=== PATIENT | male | born 1930 | race Caucasian/White ===

== ENCOUNTER → 2018-01-28 | Outpatient (CLI) | payer MEDICARE, OTHER | END | disposition home or self-care (01) | LOC: PCVCCLINIC 16:00 | DX: I11.0 Hypertensive heart disease with heart failure (principal); I50.22 Chronic systolic (congestive) heart failure; B33.24 Viral cardiomyopathy; E78.5 Hyperlipidemia, unspecified; I35.0 Nonrheumatic aortic (valve) stenosis; I48.0 Paroxysmal atrial fibrillation; R94.31 Abnormal electrocardiogram [ECG] [EKG]; I65.23 Occlusion and stenosis of bilateral carotid arteries; Z79.01 Long term (current) use of anticoagulants; Z87.891 Personal history of nicotine dependence; Z79.899 Other long term (current) drug therapy | CPT/HCPCS: 80061; 93005; G0463 ==

== ENCOUNTER → 2018-02-11 | Outpatient (CLI) | payer MEDICARE, OTHER | END | disposition home or self-care (01) | LOC: PCVCIMAG 09:41 | DX: I65.23 Occlusion and stenosis of bilateral carotid arteries (principal); I08.3 Combined rheumatic disorders of mitral, aortic and tricuspid valves; I42.9 Cardiomyopathy, unspecified; I10 Essential (primary) hypertension | CPT/HCPCS: 93306; 93880 ==

== ENCOUNTER → 2018-04-16 | Outpatient (CLI) | payer MEDICARE, OTHER | END | disposition home or self-care (01) | LOC: PCVCCLINIC 11:20 | DX: I11.0 Hypertensive heart disease with heart failure (principal); I50.22 Chronic systolic (congestive) heart failure; B33.24 Viral cardiomyopathy; I35.0 Nonrheumatic aortic (valve) stenosis; I48.0 Paroxysmal atrial fibrillation; I65.23 Occlusion and stenosis of bilateral carotid arteries; Z79.01 Long term (current) use of anticoagulants; Z87.891 Personal history of nicotine dependence; Z79.899 Other long term (current) drug therapy | CPT/HCPCS: 93005; G0463 ==

== ENCOUNTER → 2018-08-25 | Outpatient (CLI) | payer MEDICARE, OTHER | END | disposition home or self-care (01) | LOC: PCVCCLINIC 11:37 | PROVIDERS: ATTEND Internal Medicine | DX: I11.0 Hypertensive heart disease with heart failure (principal); I50.22 Chronic systolic (congestive) heart failure; B33.24 Viral cardiomyopathy; I35.0 Nonrheumatic aortic (valve) stenosis; I48.0 Paroxysmal atrial fibrillation; I65.23 Occlusion and stenosis of bilateral carotid arteries; E78.5 Hyperlipidemia, unspecified; Z79.01 Long term (current) use of anticoagulants; Z87.891 Personal history of nicotine dependence; Z79.899 Other long term (current) drug therapy | CPT/HCPCS: 80061; 93005; G0463 ==

== ENCOUNTER → 2018-09-17 | Outpatient (CLI) | payer MEDICARE, OTHER | END | disposition home or self-care (01) | LOC: PCVCCLINIC 13:00 | PROVIDERS: ATTEND Internal Medicine | DX: I11.0 Hypertensive heart disease with heart failure (principal); I50.22 Chronic systolic (congestive) heart failure; R07.9 Chest pain, unspecified; I35.0 Nonrheumatic aortic (valve) stenosis; I48.0 Paroxysmal atrial fibrillation; E78.5 Hyperlipidemia, unspecified; Z79.01 Long term (current) use of anticoagulants; Z87.891 Personal history of nicotine dependence | CPT/HCPCS: 93005; G0463 ==

== ENCOUNTER → 2018-10-05 | Outpatient (CLI) | payer MEDICARE, OTHER ==
[~2018-10-05] MED LIST: REGADENOSON 0.4 MG/5 ML DISP.SYRIN. IV ONE
--- NOTE | 2018-10-05 10:09 | PCVCIMAG ---
APPROVED REPORT Study performed: 10/05/2018 08:50:38 EXAM: Comprehensive 2D, Doppler, and color-flow Echocardiogram Patient Location: Echo lab Status: routine BSA: 1.75 HR: 87 bpmBP: 106/68 mmHg Rhythm: NSR Other Information Study Quality: Adequate Risk Factors: Cardiac Risk Factors: HTN, HTN Indications Aortic Valve Disease Atrial Fibrillation Chest Pain 2D Dimensions IVSd: 9.68 (7-11mm)LVOT Diam: 21.00 (18-24mm) LVDd: 54.12 mm PWd: 10.41 (7-11mm)Ascending Ao: 29.09 (22-36mm) LVDs: 44.29 (25-40mm) Left Atrium: 39.65 (27-40mm) Aortic Root: 28.43 mm LV Single Plane 4CH: 40.52 % LV Single Plane 2CH: 40.00 % Biplane EF: 43.1 % Volumes Left Atrial Volume (Systole) Single Plane 4CH: 64.91 mLSingle Plane 2CH: 36.48 mL LA ESV Index: 28.00 mL/m2 Aortic Valve AoV Peak Joel.: 2.44 m/s AO Peak Gr.: 23.86 mmHgLVOT Max P.98 mmHg AO Mean Gr.: 14.32 mmHgLVOT Mean P.70 mmHg AO V2 Mean: 1.80 m/sLVOT Max V: 0.86 m/s AO V2 VTI: 54.68 cmLVOT Mean V: 0.63 m/s CLAIRE (VTI): 1.24 [id number] V1 VTI: 19.84 cm CLAIRE Vmax: 1.21 cm2 AI Vmax: 4.08 m/sSV (LVOT): 67.72 mL AI Mccurtain: 2.89 m/s2 AI PHT: 425.47 ms Mitral Valve E/A Ratio: 0.7 MV Decel. Time: 185.18 ms MV E Max Joel.: 0.76 m/s MV A Joel.: 1.02 m/s IVRT: 55.36 ms TDI E/Lateral E': 9.50E/Medial E': 19.00 Medial E' Joel.: 0.04 m/s Lateral E' Joel.: 0.08 m/s Pulmonary Valve PV Peak Joel.: 0.98 m/sPV Peak Gr.: 3.90 mmHg VA End Vmax: 1.63 m/s Pulmonary Vein P Vein S: 0.62 m/sP Vein A: 0.22 m/s P Vein D: 0.37 m/sP Vein A Dur.: 93.4 msec P Vein S/D Ratio: 1.68 Tricuspid Valve TR Peak Joel.: 2.78 m/sRAP Estimate: 7.00 mmHg TR Peak Gr.: 31.00 mmHg PA Pressure: 38.00 mmHg Left Ventricle The left ventricle is normal size. There is normal left ventricular wall thickness. Left ventricular systolic function is moderately decreased. Distal septal, distal inferoapical, distal anterolateral and apical akinesis. LVEF is 40%. Grade I - abnormal relaxation pattern. Right Ventricle The right ventricle is normal size. The right ventricular systolic function is normal. Atria The left atrium size is normal. The right atrium size is normal. Aortic Valve Aortic valve is trileaflet and moderately calcified. Calculated aortic valve area is 1.2 cm2 with maximum pressure gradient of 24 mmHg and mean pressure gradient of 14 mmHg. Mild aortic regurgitation. Moderate aortic stenosis. Mitral Valve Mitral valve leaflets are mildly sclerotic, mild mitral annular calcification. Mild mitral regurgitation. No evidence of mitral valve stenosis. Tricuspid Valve The tricuspid valve is normal in structure. Mild to moderate tricuspid regurgitation. Pulmonary artery pressure is 38 mmHg. Pulmonic Valve The pulmonary valve is normal in structure. Trace to mild pulmonic regurgitation. Great Vessels The aortic root is normal in size. IVC is normal in size and collapses >50% with inspiration. Pericardium There is no pericardial effusion. <Conclusion> Left ventricular systolic function is moderately decreased. Distal septal, distal inferoapical, distal anterolateral and apical akinesis. LVEF is 40%. Mild diastolic dysfunction Aortic valve is trileaflet and moderately calcified. Calculated aortic valve area is 1.2 cm2 with maximum pressure gradient of 24 mmHg and mean pressure gradient of 14 mmHg. Mild aortic regurgitation. Moderate aortic stenosis. Mitral valve leaflets are mildly sclerotic, mild mitral annular calcification. Mild mitral regurgitation. Mild to moderate tricuspid regurgitation. Pulmonary artery pressure of 38 mmHg. There is no pericardial effusion.
--- NOTE | 2018-10-05 17:16 | PCVCIMAG ---
APPROVED REPORT Imaging Protocol: Rest Tc-99m/Stress Tc-99m 1 day Study performed: 10/05/2018 09:41:46 Indication: Chest pain, Atrial Fibrillation NM Tech:Avril EmanuelDARRELL peralta Ht: 5 ft 7 in Wt: 143 lbs BSA: 1.75 m2 HR: 93 bpm BP: 142/69 mmHg BMI: 22.3 Medical History Medical History: HTN, Hyperlipidemia, CVD, Atrial Fibrillation, CHF, Former Smoker, Age Allergies: No known drug allergies Pretest Chest Pain Characteristics: No chest pain Resting Data Rest SPECT myocardial perfusion imaging was performed in supine position 45 minutes following the intravenous injection of 10.9 mCi of Tc-99m Sestamibi. Time of rest injection: 944 Date: 10/05/2018 Administration Route: IV Administration Site: Right AC Pharmacologic Stress Pharmacologic stress test was performed by injecting Regadenoson 0.4 mg IV push over 10-15 seconds immediately followed by the intravenous injection of 33 mCi of Tc-99m Sestamibi. Time of stress injection: 33 Date: 10/05/2018 Administration Route: IV Administration Site: Right AC Gated Stress SPECT was performed 45 minutes after stress injection. The images were gated to evaluate regional wall motion and calculate left ventricular ejection fraction. Stress Test Details Stress Test: Pharmacologic stress testing performed using 0.4 mg of regadenoson per 5 mL given IV over 10 seconds. Reason for pharmacologic stress test: physical limitation, weakness. HRMax Heart Rate (APMHR): 131 bpm Resting HR: 93 bpmTarget HR (85% APMHR): 111 bpm Max HR Achieved: 118 bpm % of APMHR: 90 Recovery HR: 102 bpm BP Resting BP: 142/69 mmHg Max BP: 99/57 mmHg Recovery BP: 129/63 mmHg ECG Resting ECG: Sinus Rhythm with nonspecific ST and T wave abnormality, PRWP Stress ECG: No change ST Change: None Maximum ST Deviation: 0 mm Arrhythmia: VPC's Recovery ECG: Sinus Rhythm with nonspecific ST segment abnormality Recovery ST Change: None Recovery ST Deviation: 0 mm Recovery Arrhythmia: None Clinical Reason for Termination: Completed protocol Stress Symptoms: Abdominal discomfort, Nausea, Emesis Exercise duration: 0 min 55 sec Symptoms resolved with caffeine. Stress ECG Conclusion Clinical: Non-ischemic ECG: Non-ischemic Study Quality Study: Good Study Data Post stress, the left ventricular ejection was 47%.. SSS: 36 SRS: 36 SDS: 1 TID = 1.09. Perfusion No evidence of stress induced ischemia. 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 Nuclear Conclusion No evidence of stress induced ischemia. 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 Post stress, the left ventricular ejection was 47%. No prior study available for comparison. Interpreted by: Bobby Valdez MD Electronically Approved: 10/05/2018 16:33:12 <Conclusion> Clinical: Non-ischemic ECG: Non-ischemic
== END | disposition home or self-care (01) ==
LOC: PCVCIMAG 08:43
PROVIDERS: ATTEND Internal Medicine
DX: I08.3 Combined rheumatic disorders of mitral, aortic and tricuspid valves (principal); I48.0 Paroxysmal atrial fibrillation; B33.24 Viral cardiomyopathy; I11.0 Hypertensive heart disease with heart failure; I50.9 Heart failure, unspecified; Z87.891 Personal history of nicotine dependence
CPT/HCPCS: 78452; 93017; 93306; A9500; J2785

== ENCOUNTER → 2019-03-12 | Outpatient (CLI) | payer MEDICARE, OTHER | END | disposition home or self-care (01) | LOC: PCVCCLINIC 15:29 | PROVIDERS: ATTEND Internal Medicine | DX: I11.0 Hypertensive heart disease with heart failure (principal); I50.22 Chronic systolic (congestive) heart failure; B33.24 Viral cardiomyopathy; I35.0 Nonrheumatic aortic (valve) stenosis; I48.0 Paroxysmal atrial fibrillation; E78.5 Hyperlipidemia, unspecified; Z79.01 Long term (current) use of anticoagulants; Z87.891 Personal history of nicotine dependence | CPT/HCPCS: 36415; 80061; 93005; G0463 ==